=== PATIENT | female | born 1950 | race Caucasian/White ===

== ENCOUNTER 2021-03-14 10:59 | Outpatient (CLI) | payer MEDICARE, OTHER, SELFPAY ==
--- NOTE | 2021-03-14 10:15 | DI.RAD_ITS ---
Exam(s) XR KNEE RT 4V AP,LAT,JAQUELIN,PAT EXAM: XR KNEE RT 4V AP,LAT,JAQUELIN,PAT CLINICAL HISTORY: pain. TECHNIQUE: 2D digital imaging was performed. COMPARISON: No exams were available for comparison FINDINGS: There is no evidence of acute fracture or prominent joint effusion. There are advanced osteoarthriti c degenerative changes. This is most severe in the lateral compartment where there is [id number] a pposition as well as osteophytes. Lesser amount of narrowing is noted in the medial compartment alth ough there is a large degenerative subarticular cyst in the sub spinous tibial plateau measuring 2 x 1.9 cm. Moderate degenerative changes are noted in the patellofemoral compartment. IMPRESSION: Advanced osteoarthritic degenerative changes, most evident in the lateral compartment. DATA REPOSITORY: RADIATION DOSE DELIVERED:
--- NOTE | 2021-03-14 10:15 | DI.RAD_ITS ---
Exam(s) XR TIB/FIB RT EXAM: XR TIB/FIB RT CLINICAL HISTORY: pain. TECHNIQUE: 2D digital imaging was performed. COMPARISON: CR XR KNEE RT 4V AP,LAT,JAQUELIN,PAT from 03/14/2021 FINDINGS: There is a healed midshaft fracture of the right tibia with mild angulation. No acute fractures in t he tibia and fibula. Advanced degenerative changes are noted in the knee joint, most prominent in th e lateral compartment and there is also a large degenerative subarticular cyst in the mid aspect of t he tibial plateau. IMPRESSION: DATA REPOSITORY: RADIATION DOSE DELIVERED:
== END 2021-03-14 11:00 | disposition home or self-care (01) ==
LOC: DIORS 11:00
PROVIDERS: PCP Internal Medicine; Referring Provider Internal Medicine; Visit Provider Student in an Organized Health Care Education/Training Program
DX: M79.604 Pain in right leg (principal); M25.561 Pain in right knee; M17.11 Unilateral primary osteoarthritis, right knee; Z87.81 Personal history of (healed) traumatic fracture
CPT/HCPCS: 20610; 99203; 73564; 73590; J1040